=== PATIENT | female | born 1950 | race Caucasian/White ===

== ENCOUNTER 2016-08-18 14:11 | Emergency (ER) | payer OTHER ==
[~2016-08-18] VITALS: Ht 172.7 cm; Wt 65.8 kg
[~2016-08-18 14:11] MED LIST: LEVO100T10 PO; OXYC-128 PO; SERT50TA PO
[2016-08-18] MEDS ORDERED: LIDOCAINE HCL 1% 20 ML VIAL ONE (14:48)
[2016-08-18] MEDS ORDERED: MORPHINE SULFATE 2 MG/1 ML DISP.SYRIN ONE (14:57)
[2016-08-18] MEDS ORDERED: MORPHINE SULFATE 4 MG/1 ML DISP.SYRIN ONE ×2 (14:57→15:25)
[2016-08-18] MEDS ORDERED: MORPHINE SULFATE 4 MG/1 ML DISP.SYRIN IM ONE (15:00)
[2016-08-18] MEDS ORDERED: MORPHINE SULFATE 4 MG/1 ML DISP.SYRIN IV ONE (15:15)
[2016-08-18] MEDS ORDERED: CLINDAMYCIN HCL 150 MG CAPSULE PO ONE (15:30)
[2016-08-18] MEDS ORDERED: HYDROCODONE/APAP 5-325MG TABLET PO ONE (15:30)
[2016-08-18] MEDS ORDERED: HYDROCODONE/APAP 5-325MG TABLET ONE (15:39)
[2016-08-18] MEDS ORDERED: CLINDAMYCIN HCL 300 MG CAPSULE ONE (15:39)
--- NOTE | 2016-08-18 15:39 | NUR ---
MSE COMPLETED, PT REC'D ALL MEDS PER MD ORDERS. PT THEN D/C'D HOME. ACI/RX X3 GIVEN. PT GOT DRESSED AND AMBULATED W/O DIFF WITH SIGNIFICANT OTHER WHOM IS TO DRIVE.
[2016-08-18 15:40] VITALS: BP 110/85
== END 2016-08-18 15:41 | disposition home or self-care (01) ==
LOC: ER 14:11
DX: K04.7 Periapical abscess without sinus (principal); F32.9 Major depressive disorder, single episode, unspecified; F10.20 Alcohol dependence, uncomplicated
CPT/HCPCS: A4663; J2270; J3490

== ENCOUNTER 2016-10-05 13:47 | Emergency (ER) | payer OTHER ==
[~2016-10-05] VITALS: Ht 172.7 cm; Wt 63.5 kg
[2016-10-05] MEDS ORDERED: TRAM100T14 PO (13:59)
[2016-10-05] MEDS ORDERED: IBUPROFEN 600 MG TABLET PO ONE (14:15)
[2016-10-05] MEDS ORDERED: IBUPROFEN 600 MG TABLET ONE (14:23)
--- NOTE | 2016-10-05 15:34 | NUR ---
Patient discharged to home in stable conditon. Written and verbal after care instructions given. Patient verbalizes understanding of instructions.pt waks in steady gait. pt accompanied by
== END 2016-10-05 15:35 | disposition home or self-care (01) ==
LOC: ER 13:47
DX: S09.90XA Unspecified injury of head, initial encounter (principal); S90.112A Contusion of left great toe without damage to nail, initial encounter; S60.222A Contusion of left hand, initial encounter; F10.20 Alcohol dependence, uncomplicated; F17.200 Nicotine dependence, unspecified, uncomplicated; F41.9 Anxiety disorder, unspecified; F31.9 Bipolar disorder, unspecified; R51 Headache; W18.40XA Slipping, tripping and stumbling without falling, unspecified, initial encounter; Y93.89 Activity, other specified; Y99.8 Other external cause status; Y92.89 Other specified places as the place of occurrence of the external cause
CPT/HCPCS: 70450; 73130; 73560; 73660; A4663

== ENCOUNTER 2019-03-14 15:47 | Emergency (ER) | payer MEDICARE, OTHER ==
[~2019-03-14] VITALS: Ht 172.7 cm; Wt 63.5 kg
[~2019-03-14 15:47] MED LIST changes: -OXYC-128 PO; +TRAM100T34 PO
--- NOTE | 2019-03-14 16:18 | NUR ---
Patient discharged to home in stable conditon & brisk steady gait. Written and verbal after care instructions given to patient. Patient & family verbalized understanding of instructions.
== END 2019-03-14 16:19 | disposition home or self-care (01) ==
LOC: ER 15:57
DX: K02.7 Dental root caries (principal); F41.9 Anxiety disorder, unspecified; F32.9 Major depressive disorder, single episode, unspecified; E03.9 Hypothyroidism, unspecified; F12.10 Cannabis abuse, uncomplicated; Z79.899 Other long term (current) drug therapy
CPT/HCPCS: A4663

== ENCOUNTER 2019-05-04 15:44 | Emergency (ER) | payer MEDICARE, OTHER ==
[~2019-05-04] VITALS: Ht 172.7 cm; Wt 63.5 kg
== END 2019-05-04 17:09 | disposition home or self-care (01) ==
LOC: ER 15:46
DX: K02.9 Dental caries, unspecified (principal); F41.9 Anxiety disorder, unspecified; F32.9 Major depressive disorder, single episode, unspecified; E03.9 Hypothyroidism, unspecified; F17.200 Nicotine dependence, unspecified, uncomplicated; F12.10 Cannabis abuse, uncomplicated; Z79.899 Other long term (current) drug therapy
CPT/HCPCS: A4663